=== PATIENT | female | born 1990 | race Caucasian/White ===

== ENCOUNTER 2019-12-31 22:33 | Emergency (ER) | payer OTHER ==
[~2019-12-31] VITALS: Ht 157.5 cm; Wt 68.9 kg
[2019-12-31 22:41] VITALS: Ht 157.5 cm; Wt 68.9 kg
[2019-12-31 23:15] LABS: PLATELET COUNT 257 x10^3mcL (130-400); RED CELL DISTRIBUTION WIDTH 12.2 % (11.5-14.5)
[2019-12-31 23:41] LABS: ALBUMIN 3.5 g/dL (3.4-5.0); ALKALINE PHOSPHATASE 50 U/L (46-116); ALT/SGPT 17 U/L (14-59); AST/SGOT 15 U/L (15-37); BILIRUBIN TOTAL 0.3 mg/dL (0.20-1.00); CALCIUM 8.6 mg/dL (8.5-10.1); CREATININE SERUM 0.8 mg/dL (0.6-1.0); GFR1 > 60 mL/min; GLUCOSE SERUM 80 mg/dL (74-106); TOTAL PROTEIN, SERUM 6.6 g/dL (6.4-8.2)
[2019-12-31 23:59] LABS: CHLORIDE SERUM 101 mmol/L (98-107); POTASSIUM SERUM 3.9 mmol/L (3.5-5.1); SODIUM SERUM 131 mmol/L (136-145)
[2020-01-01 00:54] VITALS: BP 108/75
== END 2020-01-01 00:54 | disposition home or self-care (01) ==
LOC: ED 22:33
PROVIDERS: Student in an Organized Health Care Education/Training Program
DX: R07.89 Other chest pain (principal); Z88.5 Allergy status to narcotic agent; Z91.013 Allergy to seafood
CPT/HCPCS: Q0092

== ENCOUNTER 2020-02-18 19:31 | Emergency (ER) | payer OTHER, SELFPAY ==
[~2020-02-18] VITALS: Ht 157.5 cm; Wt 73.5 kg
[2020-02-18 19:46] VITALS: Ht 157.5 cm; Wt 73.5 kg
[2020-02-18 22:26] LABS: BASOPHIL % 0.5 % (0.2-1.3); PLATELET COUNT 314 x10^3mcL (179-408); RED CELL DISTRIBUTION WIDTH 12.2 % (12.3-17.7)
[2020-02-18 22:49] LABS: rbc morphology (normal/abnorm) NORMAL (NORMAL)
[2020-02-18 22:59] LABS: ALBUMIN 3.8 g/dL (3.4-5.0); ALKALINE PHOSPHATASE 61 U/L (46-116); ALT/SGPT 17 U/L (14-59); AST/SGOT 19 U/L (15-37); BILIRUBIN TOTAL 0.6 mg/dL (0.20-1.00); CARBON DIOXIDE 24.4 mmol/L (21-32); CHLORIDE SERUM 102 mmol/L (98-107); CREATININE SERUM 0.7 mg/dL (0.6-1.0); GFR1 > 60 mL/min; GLUCOSE SERUM 84 mg/dL (74-106); POTASSIUM SERUM 3.3 mmol/L (3.5-5.1); SODIUM SERUM 136 mmol/L (136-145); TOTAL PROTEIN, SERUM 7.1 g/dL (6.4-8.2)
[2020-02-18 23:11] LABS: CALCIUM 8.5 mg/dL (8.5-10.1)
[2020-02-18 23:59] VITALS: BP 118/72
[2020-02-19 00:34] LABS: T3 TOTAL 1.07 ng/mL
[2020-02-19 00:41] LABS: FREE THYROXINE INDEX 2.2 ug/dL (1.4-4.5); T4(THYROXINE) 6.6 ug/dL (4.7-13.3)
[2020-02-19 00:48] LABS: FREE T4 0.82 ng/dL (0.76-1.46)
== END 2020-02-18 23:59 | disposition home or self-care (01) ==
LOC: ED 19:31
PROVIDERS: Emergency Medicine
DX: R07.89 Other chest pain (principal); Z88.5 Allergy status to narcotic agent; Z91.013 Allergy to seafood
CPT/HCPCS: 84439; J1885